=== PATIENT | male | born 1965 | race African-American/Black ===

== ENCOUNTER → 2017-01-20 | Outpatient (CLI) | payer BC ==
[~2017-01-20] VITALS: Ht 179.1 cm; Wt 79.4 kg
[~2017-01-20] MED LIST: CYCLOBENZAPRINE10 MG PO
== END | disposition home or self-care (01) ==
LOC: AMB 11:17
PROC: 0DBL8ZX Excision of Transverse Colon, Via Natural or Artificial Opening Endoscopic, Diagnostic (ICD-10-PCS; principal; 2017-01-20)
DX: Z12.11 Encounter for screening for malignant neoplasm of colon (principal); K63.5 Polyp of colon; Q43.8 Other specified congenital malformations of intestine; K64.8 Other hemorrhoids
CPT/HCPCS: 88305; J2250; J3010